=== PATIENT | female | born 1980 | race African-American/Black ===

== ENCOUNTER 2017-05-19 10:55 | Emergency (ER) | payer SELFPAY ==
[2017-05-19 10:58] VITALS: BP 176/89; BMI 35.4
--- NOTE | 2017-05-19 12:11 | DR.GENAD ---
HPI - PCP Primary Care Physician: JAYLA - Complaint/Symptoms Chief Complaint Doctors Comments: Patient states that she had blood in her stool this morning. Denie a history of constipation or hemorrhoids Chief Complaint:: PATIENT STATED THAT SHE IS HAVING BLOOD IN STOOL THIS MORNING. - Source History Provided: Patient - Mode of Arrival Mode of Arrival: Ambulatory - Timing Onset of Chief Complaint: 05/19/17 PMH - PMH Past Medical History: Yes Past Medical History: Hypertension Past Surgical History: Yes Surgical History: - Family History History of Family Medical Conditions: Yes Family Medical History: Diabetes Mellitus, Cancer, Hypertension - Social History Does patient currently use any type of tobacco product: No Have you used tobacco products in the last 12 months: No Type of Tobacco Use: None Does any household member use tobacco: No Alcohol Use: None Do you use any recreational Drugs:: No Lives With: Family Lives Where: Home - infectious screening In the last 2 months have you had wt loss of >10#?: NO Have you had fever, night sweats or hemotysis?: No Have you traveled outside the country in the last 6 months?: No Isolation: Standard ROS - Review of Systems Eyes: No Symptoms Reported ENTM: No Symptoms Reported Respiratoy: No Symptoms Reported Cardiovascular: No Symptoms Reported Gastrointestinal/Abdominal: No Symptoms Reported Genitourinary: No Symptoms Reported Neurological: No Symptoms Reported Musculoskeletal: No Symptoms Reported Integumentary: No Symptoms Reported Hematologic/Lymphatic: No Symptoms Reported Endocrine: No Symptoms Reported Psychiatric: No Symptoms Reported All Other Systems: Reviewed and Negative PE - Vital Signs Vitals: Temperature 98.7 F Pulse Rate 104 Respiratory Rate 20 Blood Pressure [Left Arm] 145/96 Blood Pressure 176/89 O2 Sat by Pulse Oximetry 97 - General Limitations: No Limitations General Appearance: Alert, In No Apparent Distress - Head Head Exam: Normal Inspection, Atraumatic - Eyes Eye exam: Normal Appearance, PERRL, EOMI - ENT ENT Exam: Normal Exam External Ear Exam: Normal External Inspection TM/Canal Exam: Bilateral Normal Nose Exam: Normal Nose Exam, Sinus Tenderness Mouth Exam: Normal Inspection Throat Exam: Normal Inspection - Neck Neck Exam: Normal Inspection, Full ROM - Chest Chest Inspection: Normal Inspection - Respiratory Respiratory Exam: Normal Lung Sounds Bilat Respiratory Exam: Bilateral Clear to Auscultation - Cardiovascular Cardiovascular Exam: Regular Rate, Normal Rhythm - Abdominal Exam Abdominal Exam: Normal Inspection, Normal Bowel Sounds Abdominal Tenderness: negative: RUQ, RLQ, LUQ, LLQ, Epigastrium, Suprapubic, Diffuse, Mild, Moderate, Severe, Other - Extremities Extremities Exam: Normal Inspection, Full ROM - Back Back Exam: Normal Inspection, Full ROM - Neurologic Neurological Exam: Alert, Oriented X3, CN II-XII Intact - Psychiatric Psychiatric Exam: Normal Affect - Skin Skin Exam: Warm, Dry, Intact - Other Exam Other Exam: Rectal: Anal tag at twelve o'clock, no external hemorrhoids noted. ROR - Labs Reviewed Laboratory Results Reviewed?: Yes (Stool Hemocult +) Result Diagrams: 05/19/17 12:20 05/19/17 12:20 Laboratory: WBC 3.7 X10^3/uL (3.6-10.0) 05/19/17 12:20 RBC 5.26 X10^6/uL (3.5-5.4) 05/19/17 12:20 Hgb 12.9 g/dL (12.0-16.0) 05/19/17 12:20 Hct 39.7 % (36.0-47.0) 05/19/17 12:20 MCV 75.4 fL (80.0-100.0) L 05/19/17 12:20 MCH 24.5 pg (27.0-34.0) L 05/19/17 12:20 MCHC 32.5 g/dL (33.0-35.0) L 05/19/17 12:20 RDW 16.4 % (11.6-16.5) 05/19/17 12:20 Plt Count 185 X10^3/uL (150.0-450.0) 05/19/17 12:20 Plt Count Comment Adequate (ADEQUATE) 05/19/17 12:20 MPV 9.0 fL (7.4-11.0) 05/19/17 12:20 Neut % 56.0 % (42.0-75.0) 05/19/17 12:20 Lymph % 34.0 % (21.0-51.0) 05/19/17 12:20 Wise % 8.9 % (0.0-13.0) 05/19/17 12:20 Eos % 0.5 % (0.9-2.9) L 05/19/17 12:20 Baso % 0.6 % (0.2-1.0) 05/19/17 12:20 Neut # 2.1 x10^3/uL (2.2-4.8) L 05/19/17 12:20 Lymph # 1.3 X10^3/uL (1.3-2.9) 05/19/17 12:20 Wise # 0.3 x10^3/uL (0.3-0.8) 05/19/17 12:20 Eos # 0.0 x10^3/uL (0.0-0.2) 05/19/17 12:20 Baso # 0.0 X10^3/uL (0.0-0.1) 05/19/17 12:20 Absolute Nucleated RBC 0.1 /100WBC 05/19/17 12:20 Plt Morphology Comment Normal (NORMAL) 05/19/17 12:20 RBC Morphology Normal (NORMAL) 05/19/17 12:20 Sodium 137 mmol/L (136-145) 05/19/17 12:20 Corrected Sodium 137 mmol/L (136-145) 05/19/17 12:20 Potassium 4.1 mmol/L (3.5-5.1) 05/19/17 12:20 Chloride 106 mmol/L (98-107) 05/19/17 12:20 Carbon Dioxide 22.3 mmol/L (21-32) 05/19/17 12:20 BUN 11 mg/dL (7-18) 05/19/17 12:20 Creatinine 1.07 mg/dL (0.55-1.02) H 05/19/17 12:20 Est GFR (MDRD) Af Amer > 60 (>60) 05/19/17 12:20 Est GFR (MDRD) Non-Af > 60 (>60) 05/19/17 12:20 Glucose 114 mg/dL (65-99) H 05/19/17 12:20 Calcium 8.5 mg/dL (8.5-10.1) 05/19/17 12:20 Stool Description Ifob collection tube 05/19/17 12:15 Stl Occult Blood (IFOB) Positive (NEGATIVE) A 05/19/17 12:15 - Diagnosis Discharge Problem: Rectal bleed - Discharge Plan Condition: Stable - Follow ups/Referrals Follow ups/Referrals: NFD,None [Primary Care Provider] - 3 days - Instructions
[2017-05-19 12:47] LABS: BASOPHILS % (AUTO) 0.6 % (0.2-1.0); EOSINOPHILS % (AUTO) 0.5 % (0.9-2.9); HEMATOCRIT 39.7 % (36.0-47.0); HEMOGLOBIN 12.9 g/dL (12.0-16.0); LYMPHOCYTES # (AUTO) 1.3 X10^3/uL (1.3-2.9); MEAN CORPUSCULAR HEMOGLOBIN 24.5 pg (27.0-34.0); MEAN CORPUSCULAR HGB CONC 32.5 g/dL (33.0-35.0); MEAN CORPUSCULAR VOLUME 75.4 fL (80.0-100.0); MONOCYTES # (AUTO) 0.3 x10^3/uL (0.3-0.8); MONOCYTES % (AUTO) 8.9 % (0.0-13.0); NEUTROPHILS # (AUTO) 2.1 x10^3/uL (2.2-4.8); PLATELET COUNT 185 X10^3/uL (150.0-450.0); RED BLOOD COUNT 5.26 X10^6/uL (3.5-5.4); RED CELL DISTRIBUTION WIDTH 16.4 % (11.6-16.5); WHITE BLOOD COUNT 3.7 X10^3/uL (3.6-10.0)
[2017-05-19 12:50] LABS: BLOOD UREA NITROGEN 11 mg/dL (7-18); CALCIUM 8.5 mg/dL (8.5-10.1); CARBON DIOXIDE 22.3 mmol/L (21-32); CHLORIDE 106 mmol/L (98-107); COR NA(FOR HYPERGLY) 137 mmol/L (136-145); CREATININE 1.07 mg/dL (0.55-1.02); SODIUM 137 mmol/L (136-145); eGFR BLACK RACES > 60 (>60); eGFR NON BLACK RACES > 60 (>60)
[2017-05-19 13:14] LABS: PLATELET MORPHOLOGY COMMENT NORMAL (NORMAL)
== END 2017-05-19 13:25 | disposition home or self-care (01) ==
LOC: ER 11:15
DX: K62.5 Hemorrhage of anus and rectum (principal)
CPT/HCPCS: 36415; 80048; 82270; 85025; 99282